=== PATIENT | male | born 1965 | race Caucasian/White ===

== ENCOUNTER → 2019-08-28 | Outpatient (REF) | payer OTHER, SELFPAY | END | disposition home or self-care (01) | LOC: ANHLAB 14:35 | PROVIDERS: Visit Provider Nurse Practitioner | DX: C44.311 Basal cell carcinoma of skin of nose (principal) | CPT/HCPCS: 88305 ==

== ENCOUNTER → 2019-10-02 07:58 | Outpatient (REF) | payer OTHER, SELFPAY | LOC: ANHLAB 07:58 | PROVIDERS: Visit Provider Nurse Practitioner | DX: C44.311 Basal cell carcinoma of skin of nose (principal) | CPT/HCPCS: 88305; 88331 ==

== ENCOUNTER → 2020-08-20 11:22 | Outpatient (REF) | payer OTHER, SELFPAY | LOC: ANHLAB 11:22 | PROVIDERS: Visit Provider Nurse Practitioner | DX: C44.311 Basal cell carcinoma of skin of nose (principal) | CPT/HCPCS: 88305 ==

== ENCOUNTER → 2020-09-16 07:05 | Outpatient (REF) | payer OTHER, SELFPAY | LOC: ANHLAB 07:05 | PROVIDERS: Visit Provider Nurse Practitioner | DX: C44.311 Basal cell carcinoma of skin of nose (principal) | CPT/HCPCS: 88305; 88331 ==